=== PATIENT | male | born 1980 | race Caucasian/White ===

== ENCOUNTER 2018-09-12 18:38 | Emergency (ER) | payer SELFPAY ==
[~2018-09-12] VITALS: Ht 180.3 cm; Wt 79.4 kg
[2018-09-12 18:57] VITALS: BP 146/88
--- NOTE | 2018-09-12 19:29 | NUR ---
PT AMBULATED TO BED #10
--- NOTE | 2018-09-12 19:30 | NUR ---
PT AMBULATED TO THE RESTROOM
--- NOTE | 2018-09-12 19:38 | NUR ---
PT LWBS, ER MADE AWARE
--- NOTE | 2018-09-12 19:39 | NUR ---
PATIENT LEFT WITHOUT BEING SEEN BY DR. NOGUEIRA. NO FURTHER CARE PROVIDED FOR PATIENT.
== END 2018-09-12 19:39 | disposition left against medical advice (07) ==
LOC: MED 18:38
DX: M54.5 Low back pain (principal); Z53.21 Procedure and treatment not carried out due to patient leaving prior to being seen by health care provider

== ENCOUNTER 2020-10-01 08:09 | Emergency (ER) | payer OTHER, SELFPAY ==
[~2020-10-01] VITALS: Ht 180.3 cm; Wt 68.0 kg
[2020-10-01 08:28] VITALS: BP 110/67
[2020-10-01] MEDS ORDERED: ONDA4TAB PO (08:55)
[2020-10-01] MEDS ORDERED: ACET-10509 PO (08:55)
[2020-10-01] MEDS ORDERED: IBUP-2213 PO (08:55)
--- NOTE | 2020-10-01 09:15 | NUR ---
Patient assessed, treated, and discharged with v/s stable by ERMD. Written and verbal after care instructions about COVID 19 given and explained. Patient alert, oriented and verbalized understanding of instructions. Ambulatory with steady gait. All questions addressed prior to discharge. ID band removed. Patient advised to follow up with PMD. Rx of acetaminophen, ibuprofen, zofran given. Patient educated on indication of medication including possible reaction and side effects. Opportunity to ask questions provided and answered.
--- NOTE | 2020-10-01 09:15 | NUR ---
Patient discharged with v/s stable. Written and verbal after care instructions about COVID 19 given and explained. Patient alert, oriented and verbalized understanding of instructions. Ambulatory with steady gait. All questions addressed prior to discharge. ID band removed. Patient advised to follow up with PMD. Rx of acetaminophen, ibuprofen, zofran given. Patient educated on indication of medication including possible reaction and side effects. Opportunity to ask questions provided and answered.
[2020-10-01 09:21] VITALS: BP 110/67
== END 2020-10-01 09:15 | disposition home or self-care (01) ==
LOC: MED 08:09
DX: R11.2 Nausea with vomiting, unspecified (principal); J02.9 Acute pharyngitis, unspecified; R50.9 Fever, unspecified; R42 Dizziness and giddiness; Z20.822 Contact with and (suspected) exposure to COVID-19
CPT/HCPCS: 99283; U0003

== ENCOUNTER 2021-02-28 10:13 | Emergency (ER) | payer OTHER, SELFPAY ==
[~2021-02-28] VITALS: Ht 154.9 cm; Wt 92.5 kg
[~2021-02-28 10:13] MED LIST: ACET-10509 PO; IBUP-2213 PO; ONDA4TAB PO
[2021-02-28 10:19] VITALS: BP 138/80
--- NOTE | 2021-02-28 11:07 | NUR ---
40/M BIB SELF WITH C/O FLU LIKE SYMPTOMS X2 DAYS. PATIENT C/O SORE THROAT, COUGH, DECREASED APPETITE, BODY ACHES AND CHILLS. DENIES CP, SOB, N/V/D OR URINARY SYMPTOMS. PATIENT STATES HE IS NOT COVID VACCINATED BUT DENIES ANY RECENT SICK CONTACTS. DENIES TAKING MEDS AT HOME FOR SYMPTOMS.
--- NOTE | 2021-02-28 11:10 | NUR ---
ANGELA NOVEL SAMPLE COLLECTED AND WALKED TO LAB
--- NOTE | 2021-02-28 11:21 | NUR ---
Patient discharged with v/s stable. Written and verbal after care instructions ABOUT VIRAL RESPIRATORY INFECTION AND COVID 19 FREQUENTLY ASKED QUESTIONS given and explained. Patient verbalized understanding. Ambulatory with steady gait. All questions addressed prior to discharge. Advised to follow up with PMD.
== END 2021-02-28 11:21 | disposition home or self-care (01) ==
LOC: MED 10:13
DX: J06.9 Acute upper respiratory infection, unspecified (principal); Z20.822 Contact with and (suspected) exposure to COVID-19
CPT/HCPCS: 99283; U0003